=== PATIENT | male | born 1945 | race Caucasian/White ===

== ENCOUNTER 2019-05-25 19:47 | Emergency (ER) | payer OTHER ==
[~2019-05-25] VITALS: Ht 175.3 cm; Wt 74.8 kg
[2019-05-25 19:55] VITALS: BP_SYST 153
[2019-05-25] MEDS ORDERED: TAMS-11 PO (20:45)
[2019-05-25] MEDS ORDERED: APIX5TAB4 PO (20:47)
[2019-05-25] MEDS ORDERED: NIZSHAM TP (20:49)
[2019-05-25] MEDS ORDERED: DRON400T PO (20:50)
[2019-05-25] MEDS ORDERED: ENAL5TAB77 PO (20:50)
[2019-05-25] MEDS ORDERED: GLIP5TAB13 PO (20:51)
[2019-05-25] MEDS ORDERED: PRAV10TA37 PO (20:51)
[2019-05-25] MEDS ORDERED: DORZ10DR13 OP (20:53)
[2019-05-25] MEDS ORDERED: XALEYE OP (20:54)
[2019-05-25] MEDS ORDERED: LACTULOSE 20 GM/30 ML UDC PO ONE (21:00)
[2019-05-25 21:14] LABS: BASOPHILS # (AUTO) 0.1 K/uL (0.0-0.2); BASOPHILS % (AUTO) 0.6 % (0.0-2.0); EOSINOPHILS % (AUTO) 0.2 % (0.0-4.0); HEMATOCRIT 42.5 % (36-54); HEMOGLOBIN 14.4 g/dL (14.0-18.0); LYMPHOCYTES # (AUTO) 0.9 K/uL (1.0-5.5); LYMPHOCYTES % (AUTO) 10.9 % (20.5-51.5); MEAN CORPUSCULAR HEMOGLOBIN 33 pg (27-31); MEAN CORPUSCULAR HGB CONC 34 % (32-36); MEAN CORPUSCULAR VOLUME 98 fL (79.0-98.0); MONOCYTES # (AUTO) 0.6 K/uL (0.0-1.0); MONOCYTES % (AUTO) 6.5 % (1.7-9.3); NEUTROPHILS % (AUTO) 81.8 % (40.0-70.0); PLATELET COUNT (AUTO) 117 K/uL (130-430); RED BLOOD CELL COUNT(AUTO) 4.33 MIL/uL (4.2-6.2); RED CELL DISTRIBUTION WIDTH 13.8 % (9.0-15.0); WHITE BLOOD COUNT (AUTO) 8.6 K/uL (4.8-10.8)
[2019-05-25 21:27] LABS: ANION GAP 8 (5-15); CALCIUM 8.8 mg/dL (8.4-11.0); CHLORIDE 103 mmol/L (98-107); GLUCOSE 186 mg/dL (70-99); POTASSIUM 4.2 mmol/L (3.5-5.1); SODIUM SERUM 139 mmol/L (136-145); UREA NITROGEN, BLOOD 15 mg/dL (8-21)
[2019-05-25 21:36] LABS: ALANINE AMINOTRANSFERASE 25 U/L (12-78); ALBUMIN 3.4 g/dL (3.4-4.8); ASPARTATE AMINOTRANSFERASE 14 U/L (10-37); TOTAL BILIRUBIN 1.2 mg/dL (0.0-1.0)
[2019-05-25 22:20] VITALS: BP_SYST 142
== END 2019-05-25 22:20 | disposition home or self-care (01) ==
LOC: SED 19:47
DX: K59.00 Constipation, unspecified (principal); I48.91 Unspecified atrial fibrillation; E11.9 Type 2 diabetes mellitus without complications; I10 Essential (primary) hypertension; E78.00 Pure hypercholesterolemia, unspecified; Z79.899 Other long term (current) drug therapy; Z88.8 Allergy status to other drugs, medicaments and biological substances
CPT/HCPCS: 36415; 71045; 74021; 80053; 84484; 85025; 93005; 99284